=== PATIENT | female | born 1975 | race Caucasian/White ===

== ENCOUNTER 2024-06-15 08:20 | Outpatient (CLI) | payer BC, SELFPAY ==
--- NOTE | 2024-06-15 09:15 | CRLHL7_ITS ---
For Patients: As a result of the Century Cures Act, medical imaging exams and procedure reports are released immediately into your electronic medical record. You may view this report before your referring provider. If you have questions, please contact your health care provider. ULTRASOUND-GUIDED BREAST BIOPSY AND POST-BIOPSY DIGITAL MAMMOGRAM FOR BIOPSY MARKER PLACEMENT CLINICAL HISTORY: Indeterminate nodule. COMPARISON STUDIES: 05/27/2024, 05/13/2024. TECHNIQUE: Real-time ultrasound with image documentation was used for targeting the breast lesion. Core biopsy specimens were obtained using an automated gun with an 18-gauge biopsy needle. Post-biopsy CC and ML digital mammograms were obtained to document position of the biopsy marker. CONSENT and TIME OUT: The procedure, risks, and alternatives were explained to the patient and a consent was signed. [place] Protocol was followed including pre-procedure verification that relevant information/documentation was available, reviewed and properly matched to the patient; consent accurate and complete; and equipment and supplies available. Time Out was conducted just prior to starting procedure to verify the four required elements: patient identity, correct side/site marked (if applicable), procedure, relevant images/results properly labeled and displayed (if applicable). PROCEDURE: The patient was positioned supine on the ultrasound table. The breast was prepped with ChloraPrep. 8 cc of 1 percent lidocaine used for local anesthesia. Core samples were obtained. A sterile metal biopsy clip was placed percutaneously to pierre the lesion position within the breast. The specimens were placed in 10% formalin and sent to the pathology department. Pressure was held on the biopsy site until all bleeding subsided. The skin incision was closed with Steri-Strips. An ice pack was positioned over the biopsy site. Post-biopsy instructions were reviewed with the patient, and a written copy was given to her. LATERALITY: LEFT breast. LESION: Hypoechoic solid nodule measuring 6 x 8 x 9 millimeters at 2 o`clock 5 cm from the nipple. SUSPICION FOR MALIGNANCY: Low. NUMBER OF SAMPLES: 5. BIOPSY CLIP SHAPE: Oval. PROXIMITY OF CLIP TO TARGET: Within the lesion. IMPRESSION: Ultrasound-guided breast biopsy. When the pathology report is available, an addendum to this report will be made. ACR not applicable Dictated by Edgar Rawls MD @ 06/15/2024 10:19:45 AM jj/Dictated by: Edgar Rawls MD @ 06/15/2024 10:19:00 AM (Electronically Signed)
--- NOTE | 2024-06-15 10:00 | CRLHL7_ITS ---
For Patients: As a result of the Century Cures Act, medical imaging exams and procedure reports are released immediately into your electronic medical record. You may view this report before your referring provider. If you have questions, please contact your health care provider. PLEASE SEE ULTRASOUND-GUIDED LEFT BREAST BIOPSY PERFORMED SAME DAY CRL:[email or web address] [email or web address]/Dictated by: Edgar Rawls MD @ 06/15/2024 10:19:00 AM (Electronically Signed)
== END 2024-06-15 08:21 | disposition home or self-care (01) ==
LOC: US 08:23
PROVIDERS: PCP Family Medicine; Visit Provider Family Medicine
DX: N63.20 Unspecified lump in the left breast, unspecified quadrant (principal); D24.2 Benign neoplasm of left breast; R92.8 Other abnormal and inconclusive findings on diagnostic imaging of breast
CPT/HCPCS: 19083; 77065; 88305; 88341; 88342; A4648; A4649

== ENCOUNTER 2024-08-20 07:18 | Day surgery (SDC) | payer BC, SELFPAY ==
[2024-08-20 07:33] VITALS: BMI 38.2
[2024-08-20] MEDS: SODIUM CHLORIDE 0.9 % (FLUSH) 10 ML SYRINGE IVF (07:55)
[2024-08-20 08:07] VITALS: BP 130/80; PULSE 64; RESP 16; TEMP 36.9; O2SAT 96
--- NOTE | 2024-08-20 08:45 | CRLHL7_ITS ---
For Patients: As a result of the Cures Act, medical imaging exams and procedure reports are released immediately into your electronic medical record. You may view this report before your referring provider. If you have questions, please contact your health care provider. BREAST WIRE LOCALIZATION USING ULTRASOUND GUIDANCE CLINICAL HISTORY: Intraductal papilloma. LATERALITY: LEFT breast. LESION: Hypoechoic lesion measuring 6 x 8 x 9 millimeters. LOCALIZATION WIRE: [place] hookwire. TECHNIQUE: The localization wire was placed using real-time ultrasound guidance with image documentation. Cranial-caudal and medial-lateral digital mammograms were obtained after localization wire placement. CONSENT and TIME OUT: The procedure, risks, and alternatives were explained to the patient and a consent was signed. [place] Protocol was followed including pre-procedure verification that relevant information/documentation was available, reviewed and properly matched to the patient; consent accurate and complete; and equipment and supplies available. Time Out was conducted just prior to starting procedure to verify the four required elements: patient identity, correct side/site marked (if applicable), procedure, relevant images/results properly labeled and displayed (if applicable). PROCEDURE: The skin was prepped with ChloraPrep and 5 cc of 1% lidocaine was injected for local anesthesia. The localization wire was placed within or near the targeted breast lesion using ultrasound guidance. The patient tolerated the procedure well. PROXIMITY OF WIRE TO LESION: The wire is located through the lesion. The clip is just anterior to the lesion. IMPRESSION: Successful breast wire localization. ACR not applicable Dictated by Edgar Rawls MD @ 08/20/2024 9:46:11 AM jj/Dictated by: Edgar Rawls MD @ 08/20/2024 9:46:00 AM (Electronically Signed)
--- NOTE | 2024-08-20 09:03 | CRLHL7_ITS ---
For Patients: As a result of the Cures Act, medical imaging exams and procedure reports are released immediately into your electronic medical record. You may view this report before your referring provider. If you have questions, please contact your health care provider. LEFT BREAST SPECIMEN RADIOGRAPH CLINICAL HISTORY: Lumpectomy. COMPARISON: 05/27/2024, 06/15/2024. FINDINGS: Two views of the LEFT breast specimen submitted. The specimen contains the biopsy lesion, the biopsy clip and the localization wire. IMPRESSION: Specimen contains the localization wire, biopsy clip and biopsied mass. ACR not applicable Dictated by Edgar Rawls MD @ 08/20/2024 10:43:42 AM jj/Dictated by: Edgar Rawls MD @ 08/20/2024 10:43:00 AM (Electronically Signed)
[2024-08-20] MEDS: 0.9 % SODIUM CHLORIDE 500 ML 500 ML 100 ML IV (09:15)
--- NOTE | 2024-08-20 09:33 | W.PM.H&PU ---
History & Physical Update History & Physical Update H&P Reviewed and patient assessed: No changes noted
--- NOTE | 2024-08-20 09:39 | W.ANESCHARGE ---
Anesthesia Charges Start Date/Time Anesthesia Start Date: 08/20/24 Anesthesia Start Time: 09:30 Stop Date/Time Anesthesia Stop Date: 08/20/24 Anesthesia Stop Time: 10:33
[2024-08-20] MEDS: CEFAZOLIN 2 GM INJ IVP (09:40)
--- NOTE | 2024-08-20 10:00 | CRLHL7_ITS ---
For Patients: As a result of the Cures Act, medical imaging exams and procedure reports are released immediately into your electronic medical record. You may view this report before your referring provider. If you have questions, please contact your health care provider. SEE ULTRASOUND-GUIDED WIRE LOCALIZATION LEFT BREAST PERFORMED SAME DAY CRL:[email or web address] [email or web address]/Dictated by: Edgar Rawls MD @ 08/20/2024 9:46:00 AM (Electronically Signed)
[2024-08-20] MEDS: LIDOCAINE 1% MDV 20 ML INJECTION (10:20)
[2024-08-20] MEDS: BUPIVACAINE 0.25% 30 ML INJECTION (10:20)
[2024-08-20 10:30] VITALS: BP 130/85; PULSE 98; RESP 16; TEMP 36.8; O2SAT 94
--- NOTE | 2024-08-20 10:33 | W.ANESCHARGE ---
Anesthesia Charges Start Date/Time Anesthesia Start Date: 08/20/24 Anesthesia Start Time: 09:30 Stop Date/Time Anesthesia Stop Date: 08/20/24 Anesthesia Stop Time: 10:33
--- NOTE | 2024-08-20 10:38 | PM.GSPRC ---
Operative Note Date of procedure: 08/20/24 Pre-op diagnosis: Left breast mass Post-op diagnosis: Same Type of Procedure: Left breast lumpectomy Indications: Patient is a 48-year-old female with a suspicious lesion of the left breast seen on imaging. Biopsy showed an intraductal papilloma with ADH features. Recommendations were for surgical excision. Risks and benefits of operative intervention were discussed at length with the patient. Risks included but was not limited to: Bleeding, infection, risk of damage to surrounding structures, possible need for additional procedures and postoperative complications such as pneumonia, pulmonary emboli or GA. All questions and concerns were addressed with the patient agreeing to proceed. Procedure Description: Prior to arrival in the operating room, the patient was taken to radiology where a wire was placed to localize the previously placed clip. The patient was then brought to the operating room where anesthesia was induced. The left breast and axilla were prepped and draped in the usual sterile fashion. Timeout was confirmed. Local anesthesia was infiltrated into a transverse incision at the location of the tip of the wire. Using electrocautery, the segment of breast tissue containing the tip of the wire was excised. This was sent for evaluation. Radiology called back and confirmed that the clip and wire were present within the specimen. The wound was irrigated and all irrigant suctioned from the wound. Additional local anesthesia was infiltrated. The wounds were then closed in layers using absorbable suture, and steri strips were placed over the wounds. A double wide PAUL wrap was used to apply local compression. The patient was awakened without incident and taken to PACU in stable condition. Sponge, needle and instrument counts were correct x3 at the termination of the case. Findings: Left breast mass, removed with wire localization. Anesthesia: MAC and local Surgeon: Chantelle Shah MD Estimated blood loss (mL): 5 Additional Specimen Information: Left breast mass Condition: stable Disposition: PACU
[2024-08-20 10:45] VITALS: BP 145/96; PULSE 81; RESP 16; O2SAT 94
[2024-08-20 11:00] VITALS: BP 134/81; PULSE 88; RESP 16; O2SAT 96
[2024-08-20 11:15] VITALS: BP 124/78; PULSE 93; RESP 16; O2SAT 97
== END 2024-08-20 11:30 | disposition home or self-care (01) ==
PROVIDERS: PCP Family Medicine; Visit Provider Surgery
PROC: (CPT 19125; principal; 2024-08-20 09:15)
PROC: (CPT 19125; 2024-08-20 09:15)
DX: C50.212 Malignant neoplasm of upper-inner quadrant of left female breast (principal); Z17.0 Estrogen receptor positive status [ER+]
CPT/HCPCS: 19125; 00400; 19285; 77065; 88307; 88341; 88342; 88360; J2003; C1769; J0665; J0690; J1100; J1885; J2405; J2704; J3010; J3490; J7030

== ENCOUNTER 2024-08-31 06:10 | Day surgery (SDC) | payer BC, SELFPAY ==
[2024-08-31 06:37] VITALS: BP 133/95; PULSE 82; RESP 16; TEMP 36.7; O2SAT 96; BMI 38.2
--- NOTE | 2024-08-31 06:55 | W.PM.H&PU ---
History & Physical Update History & Physical Update H&P Reviewed and patient assessed: No changes noted H&P Updates: Patient with no new medications, hospitalizations or updates regarding comorbidities. Respiratory: Clear breath sounds bilaterally, maintained on room air CV: Regular rhythm and rate, well perfused Okay to proceed with mac sedation. Risks and benefits of the procedure, as well as possible risks associated with anesthesia were discussed at length with the patient. Overall patient is low risk for respiratory or cardiovascular complication.
[2024-08-31] MEDS: 0.9 % SODIUM CHLORIDE 500 ML 500 ML 100 ML IV (07:04)
[2024-08-31] MEDS: SODIUM CHLORIDE 0.9 % (FLUSH) 10 ML SYRINGE IVF (07:04)
[2024-08-31] MEDS: CEFAZOLIN 2 GM INJ IVP (07:20)
[2024-08-31] MEDS: ACETAMINOPHEN 325 MG TABLET PO (07:33)
[2024-08-31] MEDS: BUPIVACAINE 0.25% 30 ML INJECTION (07:47)
[2024-08-31] MEDS: LIDOCAINE 1% MDV 20 ML INJECTION (07:47)
--- NOTE | 2024-08-31 08:33 | PM.GSPRC ---
Operative Note Date of procedure: 08/31/24 Pre-op diagnosis: DCIS, left breast Post-op diagnosis: Same Type of Procedure: Re-excision left breast lumpectomy Indications: Patient is a 48-year-old female who underwent a left breast lumpectomy. Pathology demonstrated DCIS with positive margins superiorly and close margin anterior and posterior (less than 1 mm). These findings were discussed with the patient, as well as recommendations for re-excision. Risks and benefits were discussed at length. Risks included, were not limited to: Bleeding, infection, risk of damage to surrounding structures and possible need for additional procedures. All questions and concerns were addressed with patient agreeing to proceed. Procedure Description: After discussing the risks and benefits of the procedure, the patient signed informed consent.? The operative site was marked and the patient was brought to the operating room and placed on the operating table in supine position.? Care was taken to pad the patient's pressure points.?? The patient was then sedated by anesthesia.?? The operative site was then prepped and draped in the usual sterile fashion.? A time-out was then performed. Local anesthetic was used to anesthetize the surgical field. The previously healed transverse incision on the left breast was opened with a 15 blade scalpel. Dissection into subcutaneous tissue was continued with cautery. The cavity of the previous lumpectomy was entered with drainage of a small seroma. Using cautery the anterior, superior and medial borders of the cavity were reexcised and removed EN bloc. They were painted for orientation and passed off to be sent to pathology. A large bleeding vein was identified and ligated with 3 0 Vicryl. Hemostasis was assured with electrocautery. The cavity was irrigated and all irrigant suctioned from the wound. Chava was placed in the cavity. The incision was then closed in layers with interrupted 3 0 Vicryl and running 4-0 Monocryl. Steri-Strips, 4x4s and an [place] wrap was applied. The patient was awakened without incident and taken to PACU in stable condition. Sponge, needle and instrument counts were correct x3 at the termination of the case. Findings: Previous left breast lumpectomy site. Re-excision of anterior, superior and posterior margins. Anesthesia: MAC and local Surgeon: Chantelle Shah MD Estimated blood loss (mL): 15 Additional Specimen Information: Left breast lumpectomy, re-excision of margins Condition: stable Disposition: PACU
[2024-08-31 08:40] VITALS: BP 139/92; PULSE 80; RESP 16; TEMP 36.6; O2SAT 94
[2024-08-31 08:45] VITALS: BP 136/87; PULSE 79; RESP 16; O2SAT 94
--- NOTE | 2024-08-31 08:45 | W.ANESCHARGE ---
Anesthesia Charges Start Date/Time Anesthesia Start Date: 08/31/24 Anesthesia Start Time: 07:20 Stop Date/Time Anesthesia Stop Date: 08/31/24 Anesthesia Stop Time: 08:35
[2024-08-31] MEDS: KETOROLAC 15 MG/ML inj IVP (08:56)
[2024-08-31] MEDS: HYDROCODONE-ACETAMIN 5-325 MG 1 TAB PO (08:56)
[2024-08-31 09:00] VITALS: BP 144/86; PULSE 77; RESP 16; O2SAT 94
[2024-08-31 09:15] VITALS: BP 130/94; PULSE 71; RESP 16; O2SAT 96
[2024-08-31 09:30] VITALS: BP 129/87; PULSE 72; RESP 16; O2SAT 96
== END 2024-08-31 09:41 | disposition home or self-care (01) ==
PROVIDERS: PCP Family Medicine; Visit Provider Surgery
PROC: (CPT 19120; principal; 2024-08-31 07:30)
DX: D05.12 Intraductal carcinoma in situ of left breast (principal)
CPT/HCPCS: 19120; 00400; 81025; 88307; 88341; 88342; J2003; A9270; J0665; J0690; J1885; J2250; J2405; J2704; J3010; J3490; J7030

== ENCOUNTER 2024-10-22 08:01 | Outpatient (CLI) | payer OTHER, SELFPAY ==
--- NOTE | 2024-10-22 08:15 | CRLHL7_ITS ---
For Patients: As a result of the 21st Century Cures Act, medical imaging exams and procedure reports are released immediately into your electronic medical record. You may view this report before your referring provider. If you have questions, please contact your health care provider. BILATERAL BREAST MRI WITHOUT AND WITH GADOLINIUM, 10/22/2024 CLINICAL HISTORY: 48-year-old female who originally had asymmetry in the LEFT breast with subsequent ultrasound demonstrating a hypoechoic mass measuring 0.9 cm 2 o???clock position, 5 cm from the nipple, which was biopsied and yielded intraductal papilloma with associated ADH with excision recommended. Patient subsequently had excision performed which yielded DCIS, approximately 3 cm, DCIS present at superior margin and less than 1 mm from the anterior and posterior margins. Core biopsy site associated with tumor. INDICATION FOR BREAST MRI: Staging of newly diagnosed breast cancer and screening of contralateral breast. Regional lymph nodes will also be assessed. COMPARISON STUDIES: CONTRAST: 20 cc Dotarem. TECHNIQUE: The patient was positioned prone using a breast coil. Multiple imaging sequences were obtained using 1-1.5 mm thick slices with no gap. The image sequences include T2-weighted STIR in the axial plane, T1-weighted nonfat-saturated gradient echo in the axial plane, pre- and post-contrast T1-weighted FLASH 3D with fat suppression in the axial plane, and T1-weighted FLASH high-resolution 3D with fat suppression in the sagittal plane. Image post-processing was performed on a [employer] workstation. Complex 3D rendering including maximum intensity projections (MIPS) and volumetric renderings were obtained to optimize visualization of the extent of pathology and relationship to the nipple, skin, and chest wall. This aids in determining feasibility of breast conservation surgery. Subtraction, multiplanar reconstruction, mean curve determination, and angiogenesis mapping were also performed. The study was technically adequate. FINDINGS: Amount of Fibroglandular Tissue: Heterogeneous fibroglandular tissue. Breast Background Enhancement: Moderate. RIGHT and LEFT Breast: Post excision changes with a 2.7 x 2.6 cm post-operative fluid collection. There is non-mass rim enhancement surrounding the post-operative collection that appears slightly nodular. This is more nodular along the inferior aspect of the collection with more discrete 1 cm round mass enhancement along the medial posterior-inferior aspect of the post-operative fluid collection. Subtracted images #49 axial images. There are scattered foci of enhancement BILATERALLY. There is otherwise no additional suspicious enhancement in either breast. Lymph Nodes: There is no morphologically abnormal axillary lymph nodes. Other Findings: None. IMPRESSIONS AND RECOMMENDATIONS: Post-operative changes of recent LEFT breast lumpectomy with a 2.7 x 2.6 cm post-operative fluid collection. There is non-mass rim enhancement surrounding the collection which appears nodular. This is more nodular along the inferior aspect of the collection. There is a 1 cm round mass enhancement along the medial posterior-inferior aspect of the post-operative fluid collection. Findings may represent post-surgical changes; however, residual malignancy cannot be completely excluded. There is otherwise no suspicious findings in either breast. There are no abnormal morphology axillary lymph nodes. BI-RADS: BI-RADS Category 6: Known Biopsy-Proven Malignancy Sommer Toro M.D. Diagnostic/Breast Radiologist [email or web address] Transcribed: 9:34 am DW/Dictated by: Sommer Toro MD @ 10/26/2024 8:43:00 AM (Electronically Signed)
== END 2024-10-22 08:02 | disposition home or self-care (01) ==
LOC: MRI 08:02
PROVIDERS: PCP Family Medicine; Visit Provider Surgery
DX: Z12.39 Encounter for other screening for malignant neoplasm of breast (principal); D05.12 Intraductal carcinoma in situ of left breast; N63.20 Unspecified lump in the left breast, unspecified quadrant
CPT/HCPCS: 77049; A9575